=== PATIENT | male | born 1990 | race American Indian/Alaskan Native ===

== ENCOUNTER 2021-12-12 11:53 | Emergency (ER) | payer SELFPAY ==
[2021-12-12 14:06] LABS: Basophils % (Auto) 0.4 % (0.0-1.8); Eosinophils % (Auto) 0.3 % (0.0-4.3); Hematocrit 46.4 % (35.5-45.6); Lymphocytes # (Auto) 1.3 K/mm3 (1.2-5.4); Lymphocytes % (Auto) 32.3 % (13.4-35.0); Mean Corpuscular HGB Conc 35 % (32-34); Mean Corpuscular Volume 95 fl (84-94); Monocytes # (Auto) 0.5 K/mm3 (0.0-0.8); Monocytes % (Auto) 12.5 % (0.0-7.3); Platelet Count 170 K/mm3 (140-440); Red Blood Count 4.86 M/mm3 (3.65-5.03); Red Cell Distribution Width 13.3 % (13.2-15.2)
[2021-12-12 14:23] LABS: Alanine Aminotransferase 11 units/L (7-56); Albumin 4.4 g/dL (3.9-5); BUN/Creatinine Ratio 12; Blood Urea Nitrogen 11 mg/dL (9-20); Calcium 8.8 mg/dL (8.4-10.2); Hemolysis Index 16
[2021-12-12 14:26] LABS: Bilirubin,Urine NEG (Negative); Blood,Urine SM (Negative); Color,Urine Yellow (Yellow); Mucus,Urine 2+ /HPF; Urobilinogen,Urine < 2.0 mg/dL (<2.0)
[2021-12-12] MEDS ORDERED: SODIUM CHLORIDE 0.9% 1000 ML 1,000 ML IV ONE (14:32)
[2021-12-12] MEDS ORDERED: ONDANSETRON 4 MG/2 ML INJ IV ONE (14:32)
--- NOTE | 2021-12-12 14:33 | Emergency Department Report ---
ED Abdominal Pain HPI - General Chief Complaint: Abdominal Pain Stated Complaint: ABDOMINAL PAIN PUI?: No Time Seen by Provider: 12/12/21 13:15 Source: EMS Mode of arrival: Stretcher Limitations: No Limitations - History of Present Illness Initial Comments: Patient is a 31-year-old male that comes to the emergency room with vomiting, nausea and some diarrhea. He states that it started on Sunday. He went to [facility] [place] [facility] and they did blood work and give him some fluids and discharged him. He says he did not have any discharge instructions. Patient denies taking medications at home. Patient denies any fever or chills. He denies any bloody stools. He denies a history of this in the past. He denies any drugs or alcohol. He does endorse smoking Patient is ambulatory, [id number] and nontoxic with no hypotension or tac hycardia on admission to fast track MD Complaint: abdominal pain -: Gradual, days(s) Severity: mild Quality: cramping Consistency: intermittent Improves With: nothing Worsens With: nothing Associated Symptoms: denies other symptoms, nausea, vomiting, diarrhea - Related Data Previous Rx's Medication Instructions Recorded Last Taken Type Ondansetron [Zofran Odt] 4 mg PO Q8HR PRN #10 tab.rapdis 12/12/21 Unknown Rx Allergies Allergy/AdvReac Type Severity Reaction Status Date / Time No Known Allergies Allergy Verified 12/12/21 11:58 ED Review of Systems ROS: Stated complaint: ABDOMINAL PAIN Other details as noted in HPI Comment: All other systems reviewed and negative ED Past Medical Hx - Past Medical History Previous Medical History?: No - Surgical History Past Surgical History?: No - Family History Family history: no significant - Social History Smoking Status: Current Every Day Smoker Substance Use Type: Alcohol - Medications Home Medications: Home Medications Medication Instructions Recorded Confirmed Last Taken Type Ondansetron [Zofran Odt] 4 mg PO Q8HR PRN #10 tab.rapdis 12/12/21 Unknown Rx ED Physical Exam - General Limitations: No Limitations General appearance: alert, in no apparent distress - Head Head exam: Present: atraumatic, normocephalic - Eye Eye exam: Present: normal appearance - ENT ENT exam: Present: mucous membranes moist - Neck Neck exam: Present: normal inspection - Respiratory Respiratory exam: Present: normal lung sounds bilaterally. Absent: respiratory distress - Cardiovascular Cardiovascular Exam: Present: regular rate, normal rhythm. Absent: systolic murmur, diastolic murmur, rubs, gallop - GI/Abdominal GI/Abdominal exam: Present: soft, normal bowel sounds - Rectal Rectal exam: Present: deferred - Extremities Exam Extremities exam: Present: normal inspection - Back Exam Back exam: Present: normal inspection - Neurological Exam Neurological exam: Present: alert, oriented X3 - Psychiatric Psychiatric exam: Present: normal affect, normal mood - Skin Skin exam: Present: warm, dry, intact, normal color. Absent: rash ED Course Vital Signs 12/12/21 12/12/21 12/12/21 11:57 14:47 16:40 Temperature 98.6 F 98.2 F Pulse Rate 60 60 Respiratory 16 12 Rate Blood Pressure 101/66 112/70 [Right] O2 Sat by Pulse 98 98 98 Oximetry ED Medical Decision Making - Lab Data Result diagrams: 12/12/21 13:40 12/12/21 13:40 - Medical Decision Making Vital Signs 12/12/21 11:57 Temperature 98.6 F Pulse Rate 60 Respiratory 16 Rate Blood Pressure 101/66 [Right] O2 Sat by Pulse 98 Oximetry Labs 12/12/21 12/12/21 12/12/21 13:40 13:40 Unknown WBC 4.1 L RBC 4.86 Hgb 16.0 H Hct 46.4 H MCV 95 H MCH 33 H MCHC 35 H RDW 13.3 Plt Count 170 Lymph % (Auto) 32.3 Heard % (Auto) 12.5 H Eos % (Auto) 0.3 Baso % (Auto) 0.4 Lymph # (Auto) 1.3 Heard # (Auto) 0.5 Eos # (Auto) 0.0 Baso # (Auto) 0.0 Seg Neutrophils % 54.5 Seg Neutrophils # 2.3 Sodium 136 L Potassium 4.0 Chloride 101.2 Carbon Dioxide 20 L Anion Gap 19 BUN 11 Creatinine 0.9 Estimated GFR > 60 BUN/Creatinine Ratio 12 Glucose 78 Calcium 8.8 Total Bilirubin 0.50 AST 15 ALT 11 Alkaline Phosphatase 65 Total Protein 7.5 Albumin 4.4 Albumin/Globulin Ratio 1.4 Lipase 26 Urine Color Yellow Urine Turbidity Clear Urine pH 5.0 Ur Specific [place] 1.019 Urine Protein 100 mg/dl Urine Glucose (UA) Neg Urine Ketones 80 Urine Blood Sm Urine Nitrite Neg Urine Bilirubin Neg Urine Urobilinogen < 2.0 Ur Leukocyte Esterase Neg Urine WBC (Auto) 2.0 Urine RBC (Auto) 1.0 U Epithel Cells (Auto) 1.0 Urine Mucus 2+ Patient given normal saline, Zofran IV. Labs noted. Urine noted. Abdominal exam is benign. On discharge exam patient is taking p.o. He reports feeling better. I told him he needs to see a GI doctor because the symptoms have persisted for now 4 days with reports of not being any better. Although he did not have any active emesis or diarrhea while in the ER. Patient being discharged home with discharge plan of care including diet, activity, medications and follow-up. Patient verbalizes understanding of discharge plan of care - Differential Diagnosis Gastritis, gastroenteritis, UTI kidney stone, cholecystitis, pancreatitis Critical care attestation.: If time is entered above; I have spent that time in minutes in the direct care of this critically ill patient, excluding procedure time. ED Disposition Clinical Impression: Gastroenteritis Disposition: 01 HOME / SELF CARE / HOMELESS Is pt being admited?: No Does the pt Need Aspirin: No Condition: Stable Instructions: Abdominal Pain, Adult, [id number] Additional Instructions: Dukes diet Start with bananas rice applesauce toast Stay well-hydrated with water Zofran for nausea You need to see a specialist if this persist. The ER is not able to perform the test that you may need if this does continue. I have given you referrals below Prescriptions: Ondansetron [Zofran Odt] 4 mg PO Q8HR PRN #10 tab.rapdis PRN Reason: Vomiting Referrals: ANA SHAW MD [Primary Care Provider] - 3-5 Days SARAH BIANCHI MD [Staff Physician] - 3-5 Days Forms: Work/School Release Form(ED) Time of Disposition: 14:33
[2021-12-12] MEDS ORDERED: FAMOTIDINE 20 MG TAB PO ONE (14:34)
[2021-12-12 14:43] LABS: Bilirubin,Direct < 0.2 mg/dL (0-0.2)
[2021-12-12 16:41] VITALS: BP 112/70
== END 2021-12-12 16:44 | disposition home or self-care (01) ==
LOC: ED 11:53 → EDBD 11:53 → ED 16:41
DX: K52.9 Noninfective gastroenteritis and colitis, unspecified (principal); F17.200 Nicotine dependence, unspecified, uncomplicated; Z72.89 Other problems related to lifestyle
CPT/HCPCS: 36415; 80048; 80076; 81001; 83690; 85025; 96361; 96374; 99284; J2405; J7030